=== PATIENT | male | born 1960 ===

== ENCOUNTER 2018-06-10 13:48 | Outpatient (CLI) | payer OTHER | END 2018-06-10 13:50 | disposition home or self-care (01) | LOC: SONOGRAMA 13:48 | DX: M72.2 Plantar fascial fibromatosis (principal) ==

== ENCOUNTER 2023-01-22 11:03 | Outpatient (CLI) | payer OTHER | END 2023-01-22 11:11 | disposition home or self-care (01) | LOC: RAD 11:03 | PROVIDERS: ATTEND Podiatrist Foot Surgery | DX: M71.50 Other bursitis, not elsewhere classified, unspecified site (principal); M20.11 Hallux valgus (acquired), right foot; M21.6X2 Other acquired deformities of left foot ==

== ENCOUNTER 2024-06-15 10:34 | Outpatient (CLI) | payer OTHER | END 2024-06-15 10:44 | disposition home or self-care (01) | LOC: RAD 10:34 | PROVIDERS: ATTEND Physical Medicine & Rehabilitation | DX: M25.551 Pain in right hip (principal) ==

== ENCOUNTER 2025-03-08 13:59 | Outpatient (CLI) | payer OTHER | END 2025-03-08 14:08 | disposition home or self-care (01) | LOC: LAB 13:59 | PROVIDERS: ATTEND Urology | DX: R97.20 Elevated prostate specific antigen [PSA] (principal) ==

== ENCOUNTER 2025-03-18 07:21 | Outpatient (CLI) | payer OTHER | END 2025-03-18 07:29 | disposition home or self-care (01) | LOC: SONOGRAMA 07:21 | PROVIDERS: ATTEND Urology | DX: C61 Malignant neoplasm of prostate (principal); R97.20 Elevated prostate specific antigen [PSA] ==

== ENCOUNTER 2025-07-13 09:52 | Outpatient (CLI) | payer OTHER | END 2025-07-13 09:59 | disposition home or self-care (01) | LOC: RAD 09:52 | PROVIDERS: ATTEND Physical Medicine & Rehabilitation | DX: M79.642 Pain in left hand (principal) ==